=== PATIENT | male | born 1985 | race Caucasian/White ===

== ENCOUNTER 2024-11-05 09:42 | Inpatient (IN) | payer BC ==
[~2024-11-05] VITALS: Ht 165.1 cm; Wt 86.6 kg
[2024-11-05 10:40] LABS: CLARITY URINE CLEAR (CLEAR); COLOR URINE YELLOW (YELLOW); GLUCOSE URINE 3+ (NEGATIVE); KETONES URINE 1+ (NEGATIVE); LEUKOCYTE ESTERASE URINE NEGATIVE (NEGATIVE); NITRITE URINE NEGATIVE (NEGATIVE); OCCULT BLOOD URINE NEGATIVE (NEGATIVE); PH URINE 5.5 (4.5-8.0); PROTEIN URINE TRACE (NEGATIVE); SPECIFIC GRAVITY URINE 1.048 (1.005-1.030); UROBILINOGEN URINE 0.2 E.U./dL (0.2-1.0)
[2024-11-05 10:49] LABS: CREATININE 1.0 mg/dL (0.6-1.3); UREA NITROGEN BLOOD 6 mg/dL (9-23)
[2024-11-05 11:14] LABS: BASOPHILS % 0.6 % (0.0-2.0); EOSINOPHILS % 0.3 % (0.0-5.0); HEMATOCRIT. 42.1 % (42.0-52.0); LYMPHOCYTES % 9.2 % (20.0-50.0); MEAN PLATELET VOLUME 9.0 fl (7.4-10.4); MONOCYTES % 5.2 % (2.0-8.0); NEUTROPHILS % 84.7 % (40.0-76.0); PLATELET 202 x1000/uL (130-400); RED BLOOD CELL COUNT 4.86 mill/uL (4.7-6.1); RED CELL DISTRIBUTION WIDTH 13.5 % (11.6-14.6)
[2024-11-05 11:15] LABS: HEMOGLOBIN. 14.8 g/dL (14.0-18.0)
[2024-11-05 11:27] LABS: BACTERIA URINE NONE SEEN; RBC URINE NONE SEEN /hpf (0-2); WBC URINE NONE SEEN /hpf (0-2)
[2024-11-05] MEDS: ONDANSETRON HCL 4MG/2ML INJ IV ONE (11:51)
[2024-11-05] MEDS: SODIUM CHLORIDE 0.9% 1,000 ML IV ONE ×2 (11:52→14:54)
[2024-11-05] MEDS: MORPHINE SULFATE 4 MG/ML INJ (FOR IV/IM USE) IV ONE ×2 (11:52→14:54)
[2024-11-05] MEDS ORDERED: KCL 20MEQ/100ML PREMIX 100 ML IV PRN (15:45)
[2024-11-05] MEDS ORDERED: SODIUM PHOSPHATE 15 MMOL in SODIUM CHLORIDE 0.9% 245 ML IV PRN (15:45)
[2024-11-05] MEDS ORDERED: MAGNESIUM 2 G PREMIX 50 ML IV PRN (15:45)
[2024-11-05] MEDS: BLOOD SUGAR DIAGNOSTIC STRIP TEST SCH ×2 (15:45→21:37)
[2024-11-05] MEDS ORDERED: POTASSIUM CHLORIDE 40 MEQ in SODIUM CHLORIDE 0.9% 230 ML IV PRN (15:45)
[2024-11-05] MEDS ORDERED: BLOOD SUGAR DIAGNOSTIC STRIP TEST PRN (15:45)
[2024-11-05] MEDS: DEXT 5%/0.9% NACL 1,000 ML IV SCH (15:45)
[2024-11-05] MEDS ORDERED: DEXTROSE 50% WATER 50ML SYRINGE IV PRN ×2 (15:45→20:15)
[2024-11-05] MEDS: PIPERACILLIN/TAZO 3.375G/50ML 50 ML IV SCH (15:49)
[2024-11-05] MEDS ORDERED: INSULIN REGULAR 100U/100ML PMX 100 ML IV SCH ×2 (17:00→20:00)
[2024-11-05 17:02] LABS: BG BASE EXCESS -4.4 mmol/L (-2.0-3.0); BG CARBOXYHEMOGLOBIN 1.1 % (0.5-1.5); BG DEOXYHEMOGLOBIN 3.2 % (0.0-5.0); BG FRACTION INSPIRED OXYGEN 21; BG HCO3 ACT 18.8 mmol/L (21.0-28.0); BG METHEMOGLOBIN 0.0 % (0.5-1.5); BG OXYGEN SATURATION 96.8 % (94.0-98.0); BG OXYHEMOGLOBIN 95.7 % (94.0-98.0); BG PCO2 30.4 mmHg (35.0-48.0); BG PH 7.409 (7.350-7.450); BG PO2 84.9 mmHg (83.0-108.0); BG SAMPLE SITE RIGHT RADIAL; BG TOTAL HEMOGLOBIN 16.5 g/dL (13.5-17.5); BG VENT MODE ROOM AIR
[2024-11-05] MEDS: SODIUM CHLORIDE 0.9% 1,000 ML IV SCH ×2 (17:59→23:22)
[2024-11-05 18:52] VITALS: BP 115/81; PULSE 115; RESP 22; TEMP 37; O2SAT 98
[2024-11-05 18:58] LABS: CREATININE 1.0 mg/dL (0.6-1.3)
[2024-11-05 18:59] LABS: UREA NITROGEN BLOOD 6 mg/dL (9-23)
[2024-11-05 19:00] VITALS: BP 115/86; PULSE 118; RESP 28; O2SAT 98
[2024-11-05 19:01] LABS: PHOSPHORUS 3.0 mg/dL (2.5-4.9)
[2024-11-05] MEDS ORDERED: MAGNESIUM/ALUMINUM HYDROXIDE/SIMETHICONE 30ML UDC PO PRN (19:30)
[2024-11-05] MEDS ORDERED: ACETAMINOPHEN 325MG TABLET PO PRN (19:30)
[2024-11-05] MEDS ORDERED: DOCUSATE SODIUM 100MG CAPSULE PO PRN (19:30)
[2024-11-05] MEDS ORDERED: GUAIFENESIN 200MG/10ML SUGAR FREE UDC PO PRN (19:30)
[2024-11-05] MEDS ORDERED: IPRATROPIUM/ALBUTEROL 0.5-3(2.5)MG/3ML NEB HHN PRN (19:30)
[2024-11-05 20:00] VITALS: BP 119/91; PULSE 118; RESP 26; TEMP 37.2; O2SAT 96
[2024-11-05 20:05] VITALS: BP 110/81; PULSE 115; RESP 28; TEMP 37.0296; TEMP 37.1964
[2024-11-05] MEDS: INSULIN LISPRO 100 UNITS/ML SUBCUT SCH (21:00)
[2024-11-05 23:00] VITALS: BP 110/75; RESP 28; O2SAT 98
[2024-11-05 23:10] LABS: PHOSPHORUS 2.3 mg/dL (2.5-4.9)
[2024-11-05] MEDS: LEVOFLOXACIN 500MG PREMIX 100 ML IV SCH (23:15)
[2024-11-05] MEDS: PANTOPRAZOLE SODIUM 40 MG/VIAL IV SCH (23:15)
[2024-11-05] MEDS: METRONIDAZOLE 500MG TABLET PO SCH (23:15)
[2024-11-06] VITALS (14 sets, daily range): BP systolic 97–114; BP diastolic 64–79; PULSE 95–116; RESP 18–25; TEMP 36.3–38.3; O2SAT 97–100
[2024-11-06 00:18] LABS: HEPATITIS C AB NON REACTIVE (Neg) (Negative)
[2024-11-06] MEDS: MORPHINE SULFATE 2 MG/ML INJ (NOT FOR IM USE) IV SCH ×2 (03:57→17:18)
[2024-11-06 06:04] LABS: CREATININE 0.8 mg/dL (0.6-1.3); UREA NITROGEN BLOOD 5 mg/dL (9-23)
[2024-11-06 06:05] LABS: T4 FREE 1.16 ng/dL (0.89-1.76)
[2024-11-06] MEDS: ACETAMINOPHEN 325MG TABLET PO PRN (08:15)
[2024-11-06 11:55] LABS: *AMPHETAMINES SCREEN URINE NEGATIVE (NEGATIVE)
[2024-11-06 11:56] LABS: *BARBITURATES SCREEN URINE NEGATIVE (NEGATIVE); *BENZODIAZEPINES SCREEN URINE NEGATIVE (NEGATIVE); *COCAINE SCREEN URINE NEGATIVE (NEGATIVE); CANNABINOID URINE SCREEN NEGATIVE (NEGATIVE); ECSTASY MDMA SCREEN URINE NEGATIVE (NEGATIVE); METHADONE URINE SCREEN NEGATIVE (NEGATIVE); OPIATES URINE SCREEN NEGATIVE (NEGATIVE); PHENCYCLIDINE URINE SCREEN NEGATIVE (NEGATIVE)
[2024-11-06 12:03] LABS: BASOPHILS % 0.9 % (0.0-2.0); EOSINOPHILS % 0.2 % (0.0-5.0); HEMATOCRIT. 38.5 % (42.0-52.0); HEMOGLOBIN. 13.6 g/dL (14.0-18.0); LYMPHOCYTES % 8.3 % (20.0-50.0); MEAN PLATELET VOLUME 10.0 fl (7.4-10.4); MONOCYTES % 5.8 % (2.0-8.0); NEUTROPHILS % 84.8 % (40.0-76.0); PLATELET 167 x1000/uL (130-400); RED BLOOD CELL COUNT 4.36 mill/uL (4.7-6.1); RED CELL DISTRIBUTION WIDTH 13.9 % (11.6-14.6)
[2024-11-06] MEDS: ONDANSETRON HCL 4MG/2ML INJ IV PRN (17:18)
[2024-11-06] MEDS ORDERED: DEXTROSE 50% WATER 50ML SYRINGE IV PRN (19:15)
[2024-11-06] MEDS ORDERED: NALOXONE HCL 0.4MG/ML VIAL IV PRN (19:15)
[2024-11-06] MEDS: DEXT 5%/0.9% NACL 1,000 ML IV SCH (19:35)
[2024-11-06] MEDS: BLOOD SUGAR DIAGNOSTIC STRIP TEST SCH (20:52)
[2024-11-06] MEDS: MORPHINE SULFATE 2 MG/ML INJ (NOT FOR IM USE) IV PRN (20:58)
[2024-11-06] MEDS: ENOXAPARIN 40MG/0.4ML SYR SUBCUT SCH (20:58)
[2024-11-06] MEDS: LEVOFLOXACIN 750MG PREMIX 150 ML IV SCH (20:59)
[2024-11-06] MEDS: PANTOPRAZOLE SODIUM 40 MG/VIAL IV SCH (20:59)
[2024-11-06] MEDS: INSULIN LISPRO 100 UNITS/ML SUBCUT SCH (21:21)
[2024-11-07 00:20] VITALS: BP 102/69; PULSE 113; RESP 18; TEMP 37.4; O2SAT 97
[2024-11-07] MEDS ORDERED: INSULIN LISPRO 100 UNITS/ML SUBCUT SCH (03:00)
[2024-11-07] MEDS ORDERED: BLOOD SUGAR DIAGNOSTIC STRIP TEST SCH (03:00)
[2024-11-07] MEDS: CEFTRIAXONE 1GM/50ML 50 ML IV SCH (03:27)
[2024-11-07 04:19] VITALS: BP 107/70; PULSE 110; RESP 20; TEMP 37.6; O2SAT 97
[2024-11-07] MEDS: DIPHENHYDRAMINE 50MG/ML VIAL IV PRN (06:05)
[2024-11-07 06:51] LABS: BASOPHILS % 0.3 % (0.0-2.0); EOSINOPHILS % 0.2 % (0.0-5.0); HEMATOCRIT. 35.7 % (42.0-52.0); HEMOGLOBIN. 12.7 g/dL (14.0-18.0); LYMPHOCYTES % 7.5 % (20.0-50.0); MEAN PLATELET VOLUME 9.6 fl (7.4-10.4); MONOCYTES % 6.5 % (2.0-8.0); NEUTROPHILS % 85.5 % (40.0-76.0); PLATELET 151 x1000/uL (130-400); RED BLOOD CELL COUNT 4.12 mill/uL (4.7-6.1); RED CELL DISTRIBUTION WIDTH 13.2 % (11.6-14.6)
[2024-11-07] MEDS: BLOOD SUGAR DIAGNOSTIC STRIP TEST SCH (06:53)
[2024-11-07] MEDS: INSULIN LISPRO 100 UNITS/ML SUBCUT SCH (07:00)
[2024-11-07 07:14] LABS: UREA NITROGEN BLOOD < 5 mg/dL (9-23)
[2024-11-07 07:17] LABS: CREATININE 0.9 mg/dL (0.6-1.3)
[2024-11-07 07:19] LABS: BILIRUBIN DIRECT 0.1 mg/dL (<=3.0)
[2024-11-07 07:20] LABS: BILIRUBIN TOTAL 1.1 mg/dL (0.1-1.0); PHOSPHORUS 2.6 mg/dL (2.5-4.9); PROTEIN TOTAL 6.2 g/dL (6.0-8.3)
[2024-11-07 08:00] VITALS: BP 120/81; PULSE 104; RESP 18; TEMP 36.3; O2SAT 99
[2024-11-07] MEDS ORDERED: FAMOTIDINE 20MG/2ML VIAL IV SCH (09:00)
[2024-11-07 09:24] LABS: ASPARTATE AMINOTRANSFERASE < 8 IU/L (<34)
[2024-11-07 12:00] VITALS: BP 109/73; PULSE 109; RESP 20; TEMP 36.3; O2SAT 100
[2024-11-07 16:00] VITALS: BP 115/76; PULSE 105; RESP 20; TEMP 36.4; O2SAT 99
[2024-11-07] MEDS: ERYTHROMYCIN EC 250MG TABLET PO SCH (17:32)
[2024-11-07] MEDS: DOCUSATE SODIUM 100MG CAPSULE PO SCH (17:32)
[2024-11-07 20:00] VITALS: BP 106/64; PULSE 110; RESP 19; TEMP 36.3; O2SAT 99
[2024-11-07] MEDS: SENNOSIDES 8.6MG TABLET PO SCH (20:46)
[2024-11-08] VITALS (7 sets, daily range): BP systolic 102–119; BP diastolic 66–70; PULSE 90–114; RESP 18–20; TEMP 35.9–37.9; O2SAT 96–98
[2024-11-08 06:00] LABS: LDL CHOLESTEROL 65.0 mg/dL (5-100)
[2024-11-08 06:02] LABS: TRIGLYCERIDE 993.0 mg/dL (0-150)
[2024-11-08 10:57] LABS: PLATELET 198 x1000/uL (130-400); RED BLOOD CELL COUNT 4.16 mill/uL (4.7-6.1); RED CELL DISTRIBUTION WIDTH 13.6 % (11.6-14.6)
[2024-11-08 11:23] LABS: CREATININE 0.9 mg/dL (0.6-1.3); UREA NITROGEN BLOOD 6 mg/dL (9-23)
[2024-11-08 11:25] LABS: PHOSPHORUS 2.8 mg/dL (2.5-4.9)
[2024-11-08] MEDS: POTASSIUM CHLORIDE 20MEQ TABLET SR PO SCH (18:36)
[2024-11-09] VITALS: BP 108/63; PULSE 95; RESP 18; TEMP 36.3; O2SAT 98
[2024-11-09 04:00] VITALS: BP 107/65; PULSE 96; RESP 20; TEMP 36.3; O2SAT 96
[2024-11-09 07:18] LABS: PLATELET 224 x1000/uL (130-400); RED BLOOD CELL COUNT 4.09 mill/uL (4.7-6.1); RED CELL DISTRIBUTION WIDTH 13.2 % (11.6-14.6)
[2024-11-09 07:37] LABS: CREATININE 0.7 mg/dL (0.6-1.3); UREA NITROGEN BLOOD 6 mg/dL (9-23)
[2024-11-09 07:39] LABS: PHOSPHORUS 3.6 mg/dL (2.5-4.9)
[2024-11-09 07:50] VITALS: BP 105/70; PULSE 97; RESP 18; TEMP 36.4; O2SAT 96
[2024-11-09] MEDS: POTASSIUM CHLORIDE 20MEQ TABLET SR PO SCH (09:47)
[2024-11-09 11:28] VITALS: BP 112/72; PULSE 101; RESP 20; TEMP 36.5; O2SAT 98
[2024-11-09 15:39] VITALS: BP 104/73; PULSE 101; RESP 20; TEMP 36.6; O2SAT 97
[2024-11-09 20:00] VITALS: BP 99/71; PULSE 104; RESP 18; TEMP 36.6; O2SAT 96
[2024-11-10 00:10] VITALS: BP 105/67; PULSE 95; RESP 18; TEMP 36.7; O2SAT 96
[2024-11-10 04:00] VITALS: BP 113/78; PULSE 88; RESP 18; TEMP 36.4; O2SAT 94
[2024-11-10 08:00] VITALS: BP 105/69; PULSE 98; RESP 12; TEMP 36.4; O2SAT 97
[2024-11-10 08:51] LABS: BASOPHILS % 0.5 % (0.0-2.0); EOSINOPHILS % 0.8 % (0.0-5.0); HEMATOCRIT. 36.2 % (42.0-52.0); HEMOGLOBIN. 12.5 g/dL (14.0-18.0); LYMPHOCYTES % 14.2 % (20.0-50.0); MEAN PLATELET VOLUME 8.6 fl (7.4-10.4); MONOCYTES % 8.2 % (2.0-8.0); NEUTROPHILS % 76.3 % (40.0-76.0); PLATELET 251 x1000/uL (130-400); RED BLOOD CELL COUNT 4.10 mill/uL (4.7-6.1); RED CELL DISTRIBUTION WIDTH 13.3 % (11.6-14.6)
[2024-11-10 09:05] LABS: CREATININE 0.8 mg/dL (0.6-1.3)
[2024-11-10 09:06] LABS: UREA NITROGEN BLOOD < 5 mg/dL (9-23)
[2024-11-10 09:08] LABS: PHOSPHORUS 3.4 mg/dL (2.5-4.9)
[2024-11-10] MEDS ORDERED: METF-414 PO (11:53)
[2024-11-10] MEDS ORDERED: WHEA152P PO (11:53)
[2024-11-10] MEDS ORDERED: ATOR40TA70 MT (11:53)
[2024-11-10] MEDS ORDERED: SENN-362 PO (11:53)
[2024-11-10] MEDS ORDERED: MOM PO (11:53)
[2024-11-10] MEDS ORDERED: OMEG-119 PO (11:55)
[2024-11-10 12:00] VITALS: BP 111/71; PULSE 88; RESP 12; TEMP 36.4; O2SAT 96
[2024-11-10] MEDS: POTASSIUM CHLORIDE 20MEQ TABLET SR PO NR (12:08)
[2024-11-10 13:32] VITALS: BP 111/71; PULSE 88; TEMP 97.5; O2SAT 96
== END 2024-11-10 14:51 | disposition home or self-care (01) | DRG 871 ==
LOC: ER 09:42 → EDBEDREQSVC 16:31 → EDBEDREQ 17:30 → EDBEDREQTM 17:30 → MICUSO 18:37 → 7WST 11-06 08:52
PROVIDERS: ADMIT Internal Medicine; ATTEND Internal Medicine
DX: A41.9 Sepsis, unspecified organism (principal); E11.10 Type 2 diabetes mellitus with ketoacidosis without coma; K76.0 Fatty (change of) liver, not elsewhere classified; F43.20 Adjustment disorder, unspecified; F32.A Depression, unspecified; A05.9 Bacterial foodborne intoxication, unspecified; K59.00 Constipation, unspecified; R16.0 Hepatomegaly, not elsewhere classified; F12.10 Cannabis abuse, uncomplicated; E78.5 Hyperlipidemia, unspecified; E11.43 Type 2 diabetes mellitus with diabetic autonomic (poly)neuropathy; E87.6 Hypokalemia; E87.8 Other disorders of electrolyte and fluid balance, not elsewhere classified; F17.210 Nicotine dependence, cigarettes, uncomplicated; K29.80 Duodenitis without bleeding; I10 Essential (primary) hypertension; K31.84 Gastroparesis
CPT/HCPCS: 36415; 36600; 71101; 74176; 76705; 80048; 80061; 80076; 80305; 81003; 82010; 82150; 82375; 82805; 82962; 83036; 83605; 83735; 83930; 84100; 84439; 84443; 85025; 85027; 86705; 86709; 87340; 93005; 96361; 96365; 96366; 96375; 96376; 99291; A4606; J0696; J1200; J1650; J1815; J1956; J2270; J2405; J2470; J2543; J7030; J7042